=== PATIENT | male | born 1965 | race Caucasian/White ===

== ENCOUNTER 2017-12-09 16:41 | Observation (INO) | END 2017-12-10 20:00 ==

== ENCOUNTER 2018-04-06 09:56 | Observation (INO) | payer OTHER ==
[2018-04-05 17:31] VITALS: BMI 22.2
[2018-04-06] VITALS (25 sets, daily range): BP systolic 112–149; BP diastolic 2–91; PULSE 54–76; RESP 16–40; Ht 167.6 cm; Wt 64.7 kg
[~2018-04-06] VITALS: Ht 167.6 cm; Wt 64.7 kg
--- NOTE | 2018-04-06 07:38 | PREAC ---
Date/Time of Note Date/Time of Note DATE: 04/06/18 TIME: 07:36 Anesthesia Eval and Record Evaluation Time Pre-Procedure Interview DATE: 04/06/18 TIME: 07:36 Age 52 Sex male NPO: 8 hrs Preoperative diagnosis genital and urethral warts Planned procedure CO2 LASER of genital warts, cystoscopy, and fulguration of urethral warts Past Medical History Past Medical History: Includes Endo: Diabetes Psych: Depression Surgery & Anesthesia Issues No known issue Meds Anticoagulation: No Beta Obinna within 24 hr: No Reason Beta Obinna not given: Pt. not on B-Obinna Reported Medications Insulin Glargine,Hum.rec.anlog (Basaglar Kwikpen U-100) 100 Unit/1 Ml Insuln.pen, 30 UNIT SC QHS, EA 04/06/18 Discontinued Reported Medications Insulin Glargine,Hum.rec.anlog (Basaglar Kwikpen U-100) 100 Unit/1 Ml Insuln.pen, 30 UNIT SC DAILY, EA 04/05/18 Discontinued Scripts Ciprofloxacin Hcl* (Ciprofloxacin Hcl*) 500 Mg Tablet, 500 MG PO BID for 7 Days, TAB Prov:ASHA ORTEGA 12/10/17 Sitagliptin* (Januvia*) 100 Mg Tablet, 100 MG PO DAILY, #30 TAB Prov:ASHA ORTEGA 12/10/17 Tramadol HCl (Tramadol HCl) 50 Mg Tab, 50 MG PO Q8 PRN for PAIN, #30 TAB Prov:ASHA ORTEGA 12/10/17 Current Medications Cefazolin Sodium/ Dextrose 50 ml @ 100 mls/hr PREOP IVPB ; Start 04/06/18 at 06:00; Stop 04/06/18 at 19:00 Meds reviewed: Yes Allergies Coded Allergies: No Known Allergies (Verified Allergy, Unknown, 04/06/18) Allergies Reviewed: Yes Labs/Studies Labs Reviewed: Reviewed by anesthesiologist test: N/A Pre-procedure Exam Airway: Adequate mouth opening, Adequate thyromental dist Mallampati: Mallampati II Teeth: Normal Lung: Normal Heart: Normal ASA Physical Status ASA physical status: 2 Emergency: None Planned Anesthetic General/MAC: LMA Planned Pain Management Parenteral pain med, Local by surgeon Pre-operative Attestations Prior to commencing anesthesia and surgery, the patient was re-evaluated, there was verification of: *The patient's identity *The results of appropriate recent lab work and preoperative vital signs *The above evaluation not changing prior to induction *Anesthetic plan, risk benefits, alternative and complications discussed with patient/family; questions answered; patient/family understands, accepts and wishes to proceed. JESSICA BAUTISTA Apr 06, 2018 07:38
[~2018-04-06 09:56] MED LIST: CEFAZOLIN 2 GM/50 ML (PMX) 50 ML IVPB SCH; CIPR500T4 PO; HYDROmorphONE 1 MG/5 ML IV SYRINGE IV PRN; INSU100I33 SC; MEPERIDINE 25 MG INJ IV PRN; ONDANSETRON 4 MG INJ IV PRN; OXYCODONE/ACETAMINOPHEN (5/325) TAB PO PRN; SITA100T11 PO; TRAM50TA2 PO
[2018-04-06] MEDS ORDERED: INSU100I33 SC (10:36)
[2018-04-06] MEDS ORDERED: PROPOFOL 20 ML ONE (11:34)
[2018-04-06] MEDS ORDERED: LIDOCAINE 2% (SDV) 5 ML INJ ONE (11:34)
[2018-04-06] MEDS ORDERED: MIDAZOLAM 1 MG/ML 2 ML INJ ONE (11:34)
[2018-04-06] MEDS ORDERED: CEFAZOLIN 1 GM INJ ONE (11:38)
[2018-04-06] MEDS ORDERED: FAMOTIDINE 20 MG INJ ONE (12:41)
[2018-04-06] MEDS ORDERED: ONDANSETRON 4 MG INJ ONE (12:41)
[2018-04-06] MEDS ORDERED: METOCLOPRAMIDE 10 MG INJ ONE (12:41)
--- NOTE | 2018-04-06 13:58 | OPR ---
Date/Time of Note Date/Time of Note DATE: 04/06/18 TIME: 13:50 Operative Report Procedure Date: Apr 06, 2018 Preoperative Diagnosis Condyloma acuminata of the glans penis, urethral meatus and penile shaft Postoperative Diagnosis Same Operation/Procedure Performed CO2 laser treatment of condyloma acuminata of the glans penis urethral meatus and penile shaft and also of 2 small ones in the perianal area. Cystoscopy and fulguration of venereal warts at the urethral meatus Surgeon see signature line License Clerk extractions technician Marlon Anesthesia Type: general Anesthesiologist: JESSICA BAUTISTA Estimated Blood Loss: minimal Transfusion none Specimen None Grafts/Implants none Complications none Pt Condition Post Procedure: stable Disposition: PACU Indications Condyloma acuminata of the glans penis, urethral meatus and penile shaft. Procedure Description Patient was brought to the operating room and general anesthesia was induced. The patient was positioned in the lithotomy position and the lower abdomen, pubic area upper thighs and genital area were all prepped and draped in the usual sterile manner. Patient was given 2 g of Ancef IV at the start of the procedure. Timeout was done and the patient was identified by his name, miriam rich, and the procedure. The CO2 laser was used and all the visible warts on the glans penis, shaft of the penis were treated and also at the urethral meatus. He did also have small ones around the base of the penis pubic area that I treated as well and he mentioned to me prior to surgery that he may have other lesions around the anal area and I looked at that and he had 2 or 3 small ones and I treated that with the laser as well. After treating all the outside visible warts I went ahead and did the cystoscopy using the 21 Occitan cystoscope sheath and the whole urethra was clear on only the area at the meatus had the wart that I also treated with the CO2 laser and also fulgurated with the Bovie. He did have some bleeders on the glans penis which I had to electrocoagulate also with the Bovie. Patient tolerated the procedure well and was transferred to the recovery room in a stable and satisfactory condition. CRISTIANO HILLS MD Apr 06, 2018 13:58
[2018-04-06] MEDS ORDERED: ONDANSETRON 4 MG INJ IV PRN (14:00)
[2018-04-06] MEDS ORDERED: OXYCODONE/ACETAMINOPHEN (5/325) TAB PO PRN ×2 (14:00)
[2018-04-06] MEDS ORDERED: MEPERIDINE 25 MG INJ IV PRN (14:00)
[2018-04-06] MEDS ORDERED: HYDROmorphONE 1 MG/5 ML IV SYRINGE IV PRN ×3 (14:00)
[2018-04-06] MEDS ORDERED: HYDROCODONE/APAP (5/325) TAB PO PRN (14:00)
[2018-04-06] MEDS ORDERED: GLUCOSE GEL 15 GRAM TUBE BUCCAL PRN (15:00)
[2018-04-06] MEDS ORDERED: DEXTROSE 50% 50 ML SYRINGE IV PRN ×2 (15:00)
[2018-04-06] MEDS ORDERED: GLUCAGON 1 MG INJ IM PRN (15:00)
[2018-04-06] MEDS ORDERED: GLUCOSE GEL 15 GRAM TUBE PO PRN ×2 (15:00)
[2018-04-06] MEDS: INSULIN ASPART [NOVOLOG] 3 ML PEN SC SCH ×2 (18:12→21:00)
[2018-04-07 02:00] VITALS: BP 99/58; PULSE 60; RESP 19
[2018-04-07 07:15] VITALS: BP 99/56; PULSE 63; RESP 16
--- NOTE | 2018-04-07 07:59 | PAC ---
Date/Time of Note Date/Time of Note DATE: 04/07/18 TIME: 07:59 Post-Anesthesia Notes Post-Anesthesia Note Last documented vital signs Vital Signs Date Temp Pulse Resp B/P (MAP) Pulse Ox O2 O2 Flow FiO2 Time Delivery Rate 04/07/18 98.5 60 19 99/58 (72) 100 02:00 04/06/18 Room Air 15:14 Activity: WNL Respiratory function: WNL Cardiovascular function: WNL Mental status: Baseline Pain reasonably controlled: Yes Hydration appropriate: Yes Nausea/Vomiting absent: Yes JESSICA BAUTISTA Apr 07, 2018 07:59
[2018-04-07] MEDS: INSULIN ASPART [NOVOLOG] 3 ML PEN SC SCH ×2 (08:00→12:45)
--- NOTE | 2018-04-07 09:29 | PDOCDIS ---
Discharge Instructions DIAGNOSIS Discharge Diagnosis 52-year-old male with multiple venereal warts involving penile head Status post removal of venereal warts Type 2 diabetes mellitus Homeless 52-year-old male with history of multiple venereal warts was admitted by urologist and underwent resection of the warts. Patient has type 2 diabetes mellitus and takes basiglar. He reports being homeless. tie worker evaluation was requested. Group Home placement will be arranged. Patient will follow up with PCP and urology as outpatient CONDITION [id number] Patient Condition: [id number] Good HOME CARE INSTRUCTIONS: [id number] Diet Instructions: [id number] Special Diet: [id number] Diabetic ACTIVITY: [id number] Activity Restrictions: [id number] No Sexual Activity FOLLOW UP/APPOINTMENTS Follow-up Plan Dr Tsang 1 week PCP in 1 week NEIDA AMBRIZ MD Apr 07, 2018 09:29
== END 2018-04-07 13:45 | disposition home or self-care (01) ==
LOC: SDS 09:56 → REC 14:13 → SDS 14:13 → PP2 15:42
PROVIDERS: ADMIT Urology; ATTEND Urology
DX: A63.0 Anogenital (venereal) warts (principal)
CPT/HCPCS: 54057; 80048; 81003; 82962; 85025; 85610; 85730; J0690; J1170; J1815; J2250; J2405; J2765; J3010; Z7500; Z7512; Z7610; G0378

== ENCOUNTER 2018-06-21 14:44 | Emergency (ER) | payer OTHER ==
[~2018-06-21] VITALS: Wt 73.0 kg
[~2018-06-21 14:44] MED LIST changes: -CEFAZOLIN 2 GM/50 ML (PMX) 50 ML IVPB SCH; -CIPR500T4 PO; -HYDROmorphONE 1 MG/5 ML IV SYRINGE IV PRN; -MEPERIDINE 25 MG INJ IV PRN; -ONDANSETRON 4 MG INJ IV PRN; -OXYCODONE/ACETAMINOPHEN (5/325) TAB PO PRN; -SITA100T11 PO; -TRAM50TA2 PO
[2018-06-21 14:46] VITALS: BP 136/71; PULSE 66; RESP 18
--- NOTE | 2018-06-21 15:30 | ERD ---
ER Documentation Chief Complaint Chief Complaint righ knee pain HPI 52-year-old male, with history of diabetes, presents to the emergency department, complaining of right knee pain, after being on his knee for 2 hours yesterday. The patient denies local erythema warmth or deformity. The patient also denies fever, no chills, no direct trauma. ROS All systems reviewed and are negative except as per history of present illness. Medications Home Meds Reported Medications Insulin Glargine,Hum.rec.anlog (Basaglar Kwikpen U-100) 100 Unit/1 Ml Insuln.pen, 30 UNIT SC QHS, EA 04/06/18 Allergies Allergies: Coded Allergies: No Known Allergies (Verified Allergy, Unknown, 04/06/18) PMhx/Soc Medical history: Diabetes Surgical history: Circumcision 2018 Medical and Surgical Hx: pt denies Medical Hx, pt denies Surgical Hx History of Surgery: Yes (VERNEREAL WARTS REMOVED, L. FOOT/TOE SX) Anesthesia Reaction: No Hx Neurological Disorder: No Hx Respiratory Disorders: No Hx Cardiac Disorders: No Hx Psychiatric Problems: No Hx Miscellaneous Medical Probl: No Hx Alcohol Use: No Hx Substance Use: No Hx Tobacco Use: No FmHx Mother with heart disease Family History: coronary disease; No diabetes Physical Exam Vitals Vital Signs Date Temp Pulse Resp B/P (MAP) Pulse Ox O2 O2 Flow FiO2 Time Delivery Rate 06/21/18 97.5 66 18 136/71 99 14:46 (92) Physical Exam Const: No acute distress Head: Atraumatic Eyes: Normal Conjunctiva ENT: Normal External Ears, Nose and Mouth. Neck: Full range of motion. No meningismus. Resp: Clear to auscultation bilaterally Cardio: Regular rate and rhythm, no murmurs Abd: Soft, non tender, non distended. Normal bowel sounds Skin: No petechiae or rashes Back: No midline or flank tenderness Ext: Right knee: Prepatellar edema, surrounded by crepitus, mild ecchymosis noticed over the medial aspect, no gross deformity, distal neurovascular exam intact, no cyanosis, or edema Neur: Awake and alert Psych: Normal Mood and Affect Procedures/MDM Acute right knee pain: no red flags. Differential diagnosis include but not limited to: Knee contusion, meniscus injury, tendon/ligament injury, arthritis; low suspicion for fracture, dislocation, septic arthritis. Neurovascular exam grossly intact. no clinical findings suggestive of acute infectious process, no acute deformity, no edema, no rashes. Pertinent Data: X-rays: No fracture or dislocation Physical examination and clinical presentation consistent most likely with acute derangement of the right knee During the ED course the patient remained stable, no new complaints. Results and clinical impression discussed with the patient who agrees with management. The patient is stable to be treated outpatient and will be discharged home with recommendations for ice, rest and partial immobilization. NSAIDs 3 times daily for 5 days and close monitoring. The patient was instructed to follow up with the primary care provider in the next 48h. If symptoms persist, worsen or new symptoms develop, then patient should return to the ED immediately. Instructions explained and given to patient with acknowledgment and demonstrated understanding. Disclaimer: Inadvertent spelling and grammatical errors are likely due to EHR/dictation software use and do not reflect on the overall quality of patient care. Also, please note that the electronic time recorded on this note does not necessarily reflect the actual time of the patient encounter. Departure Diagnosis: Primary Impression: Derangement of knee, right Condition: Stable Patient Instructions: Knee Pain, Uncertain Cause, Reducing Knee Pain and Swelling Referrals: TRAMAINE CABRERA Additional Instructions: Thank you very much for allowing us to participate in your care. Your health and safety is our top priority at [facility]. The evaluation in the emergency department has been done to rule out an acute emergency, therefore, chronic conditions like malignancy or other diseases have not been evaluated; therefore, you need to follow up with a primary care provider in the next 48h. If symptoms persist, worsen or new symptoms develop, then patient should return to the ED immediately. Call your primary care doctor TOMORROW for an appointment during the next 2-4 days and bring all the information provided. Have prescriptions filled and follow precisely the directions on the label. If the symptoms get worse and your provider is unavailable, return to the Emergency Department immediately. BRANDAN CARVALHO MD June 21, 2018 15:30
[2018-06-21] MEDS ORDERED: ACET325T33 PO (16:55)
[2018-06-21] MEDS ORDERED: IBUP-1561 PO (16:55)
[2018-06-21] MEDS ORDERED: HYDR-4011 PO (16:55)
== END 2018-06-21 17:20 | disposition home or self-care (01) ==
LOC: FTE 14:44
DX: M23.91 Unspecified internal derangement of right knee (principal); E11.9 Type 2 diabetes mellitus without complications; Z79.4 Long term (current) use of insulin
CPT/HCPCS: 73562; Z7502